=== PATIENT | male | born 1950 | race Caucasian/White ===

== ENCOUNTER 2016-08-06 13:17 | Inpatient (IN) | payer MEDICARE ==
[~2016-08-06] VITALS: Ht 180.3 cm; Wt 84.2 kg
[2016-08-06] MEDS ORDERED: HYDROCODON-ACE1 EAC7 PO (13:41)
[2016-08-06] MEDS ORDERED: FUROSEMIDE40 MG PO (13:42)
[2016-08-06] MEDS ORDERED: FOSRENOL500 MG PO (13:42)
[2016-08-06] MEDS ORDERED: PRINIVIL20 MG PO (13:45)
[2016-08-06] MEDS ORDERED: SENSIPAR30 MG PO (13:45)
[2016-08-06 13:46] VITALS: BP 68/34; BMI 26.8
--- NOTE | 2016-08-06 14:20 | NUR ---
PT TO UNIT VIA WHEELCHAIR ACCOMPANIED BY HOSPTIAL STAFF. PT IS ALERT AND ORIENTED. SURGICAL MASK ON PT. GLASSES ON PT. NO IV ACCESS CURRENTLY (PT IS DIRECT ADMIT). PT IS IN AIRBORNE ISOLATION FOR TB. INSTRUCTED PT AND THAT ANYONE THAT COMES IN ROOM HAS TO WEAR N95 RESP MASK AND TO MAKE SURE THE DOORS ARE KEPT CLOSED. PT AND PTS AGREED. QUICKSTART DONE, ADMISSION ASSESSMENT DONE, AND ADMISSION HISTORY DONE. WILL CONTINUE TO MONITOR AND AWAIT NEW ORDERS. WILL TRY TO INSERT IV ONCE XRAY GETS DONE IN ROOM.
--- NOTE | 2016-08-06 14:37 | NUR ---
SHANNAN PERALTA NP TO CLARIFY WITH HIM ABOUT WRITTEN ORDERS IN THE CHART REGARDING PERITONEAL DIALYSIS. AWAITING CALLBACK.
[2016-08-06 14:57] LABS: INR 1.06 (0.85-1.17); PROTIME 13.6 SECONDS (11.6-15.0)
--- NOTE | 2016-08-06 15:00 | NUR ---
FABIAN TOMLINSON APN CALLED BACK TO CLARIFY PD ORDERS. RAIS PERALTA STATES DWELL TIME IS 6 HOURS WITH 2,000CC INSTILATION TIME. WILL AWAIT DR. GARZA TO CLARIFY WRITTEN ORDER IN CHART.
[2016-08-06 15:09] LABS: ALBUMIN 2.3 g/dL (3.4-5.0); BILIRUBIN - DIRECT 0.16 mg/dL (0.00-0.30); BILIRUBIN - INDIRECT 0.44 mg/dL (0.00-1.00); BILIRUBIN - TOTAL 0.6 mg/dL (0.2-1.3); CALCIUM 9.1 mg/dL (8.5-10.1); MAGNESIUM - SERUM 1.7 mg/dL (1.8-2.4); PHOSPHOROUS 7.8 mg/dL (2.5-4.9); PROTEIN - SERUM 6.2 g/dL (6.4-8.2)
[2016-08-06 15:14] LABS: HEMATOCRIT 32.3 % (42.0-54.0); HEMOGLOBIN 11.2 g/dL (13.5-17.5); MCH 30.8 pg (26.0-34.0); MCHC 34.7 g/dL (31.0-37.0); MCV 88.7 fL (80.0-100.0); MEAN PLATELET VOLUME 11.5 fL (7.4-10.4); PLATELET COUNT 292 10x3/uL (130-400); RBC 3.64 10x6/uL (4.20-6.10); RDW 14.5 % (11.5-14.5)
[2016-08-06 15:36] VITALS: BP 96/60
[2016-08-06 15:42] LABS: LYMPHOCYTES 8 % (15-50); NEUTROPHILS 92 % (40-80); PLATELET ESTIMATE NORMAL
--- NOTE | 2016-08-06 17:22 | NUR ---
LAVON GONZALEZ RN INSERTED IV INTO PTS RIGHT AC WITH 22G IV CATHETER X 1 STICK. TOLERATED WELL. IV ANTIBIOTICS ARE INFUSING NOW. WILL CONTINUE TO MONITOR.
--- NOTE | 2016-08-06 18:12 | NUR ---
IN AIRBORNE ISOLATION FOR POSSIBLE TB. PT IS CURRENTLY LAYING IN BED ON BACK WITH EYES OPEN WATCHING TV. IS AT BEDSIDE. FAMILY MEMBERS INSTRUCTED TO KEEP DOORS SHUT AND WEAR PPE WHEN ENTERING ROOM. NO NEED AT CURRENT TIME. WILL CONTINUE TO MONITOR.
[2016-08-06 18:31] LABS: EOS BF 8 %; LYMPH - BF 13 %; MACROPHAGES BF 3 %; MESOTHELIALS BF 2 %; NEUT - BF 74 %
--- NOTE | 2016-08-06 18:35 | NUR ---
PT IS RESERVE LEFT ARM FOR AVF. 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 SIGNS PLACED ABOVE PTS BED AND ON PTS DOOR.
[2016-08-06 21:04] VITALS: BP 118/46
--- NOTE | 2016-08-06 21:04 | NUR ---
PT AWAKE, ALERT, ORIENTED, DENIES ANY NEEDS. CONTINUE TO MONITOR CLOSELY.
[2016-08-07 01:48] VITALS: BP 132/62
--- NOTE | 2016-08-07 05:04 | NUR ---
PT AWAKE, ALERT, ORIENTED, SITTING ON SIDE OF BED. PD WITHOUT ANY DIFFICULTY. PT DENIES ANY ACUTE NEEDS. CONTINUE TO MONITOR CLOSELY.
[2016-08-07 05:05] VITALS: BP 117/64
[2016-08-07 05:27] LABS: BASOPHILS 0.1 % (0.0-2.0); EOSINOPHILS 0.7 % (0-7); HEMATOCRIT 31.7 % (42.0-54.0); HEMOGLOBIN 10.6 g/dL (13.5-17.5); IMMATURE GRANULOCYTES 1.2 % (0-5); LYMPHOCYTES 7.3 % (15-50); MCHC 33.4 g/dL (31.0-37.0); MCV 89.8 fL (80.0-100.0); MONOCYTES 3.2 % (2-11); NEUTROPHILS 87.5 % (40-80); PLATELET COUNT 281 10x3/uL (130-400); RBC 3.53 10x6/uL (4.20-6.10); RDW 14.4 % (11.5-14.5); WBC 20.9 10x3/uL (4.8-10.8)
[2016-08-07 05:31] LABS: CARBON DIOXIDE 29.3 mmol/L (21.0-32.0); CREATININE - SERUM 12.9 mg/dL (0.6-1.3)
[2016-08-07 05:32] LABS: POTASSIUM - SERUM 3.3 mmol/L (3.5-5.1)
--- NOTE | 2016-08-07 07:37 | NUR ---
PT SITTING UP IN BED DENIES AT THIS TIME WILL CONT TO MONITOR.
[2016-08-07 08:31] VITALS: BP 102/63
--- NOTE | 2016-08-07 10:01 | NUR ---
Patient Name: ROSHAN VELAZQUEZ Admission Status: Elective Accout number: [id number] Admission Date: 08-06-2016 : 1950 Admission Diagnosis: Attending: AKOSUA Current LOS: 1 Anticipated DC Date: Planned Disposition: Home Primary Insurance: [facility] PF Discharge Planning Comments: * Is the patient Alert and Oriented? Yes 0 * How many steps to enter\exit or inside your home? 3 OUT/1 IN 0 * PCP ABDULLAHI VITALE DR. - NEPHROLOGY 0 * [facility] * Preadmission Environment Home with Family 0 * ADLs Independent 0 * Equipment Other 0 * Other Equipment HOME DIALYSIS (PD) EQUIPMENT AND SUPPLIES 0 * List name and contact numbers for known caregivers / representatives who currently or will assist patient after discharge: SHIRA VELAZQUEZ, SPOUSE, 0 * Community resources currently utilized Other 0 * Please name any agencies selected above. [facility] [employer], MAIL ORDER - HOME PD SUPPLIES 0 * Additional services required to return to the preadmission environment? No 0 * Can the patient safely return to the preadmission environment? Yes 0 * Has this patient been hospitalized within the prior 30 days at any hospital? No 0 CM MET WITH PT IN ROOM TO DISCUSS DISCHARGE PLANNING AND NEEDS. PT REPORTS LIVING AT HOME INDEPENDENTLY WITH SPOUSE. PT HAS HOME DIALYSIS EQUIPMENT FOR PERITONEAL DIALYSIS, SUPPLIES PROVIDED BY [employer] VIA MAIL ORDER. PT HAS NO OTHER MEDICAL EQUIPMENT, NO MEDICAL EQUIPMENT PROVIDER PREFERENCE AND NO OUTSIDE SERVICES ASSISTING IN THE HOME. CM DISCUSSED AVAILABILITY OF HOME HEALTH, REHAB SERVICES AND MEDICAL EQUIPMENT. PT DENIES DISCHARGE NEEDS, REPORTS HIS SPOUSE WILL PICK HIM UP FOR DISCHARGE HOME. IMPORTANT MESSAGE FROM MEDICARE PROVIDED AND EXPLAINED. PT PLANS TO DISCHARGE HOME WITH SPOUSE, DENIES DISCHARGE NEEDS. CM TO FOLLOW AND ASSIST IF NEEDED. Identification And Records Commander: Doyle Huitron
--- NOTE | 2016-08-07 10:09 | NUR ---
PATIENT PATHWAYS - [facility]. PD patient. BMM
[2016-08-07 10:58] VITALS: Ht 180.3 cm; Wt 84.2 kg
[2016-08-07 12:00] VITALS: BP 135/49
--- NOTE | 2016-08-07 12:17 | NUR ---
PT SITTING UP TO CHAIR AND VISITOR IN ROOM. PT DENIES NEEDS AT THIS TIME. WILL CPOC
[2016-08-07 16:22] VITALS: BP 143/82
[2016-08-07 18:14] LABS: BASOPHILS 0.1 % (0.0-2.0); EOSINOPHILS 0.8 % (0-7); HEMATOCRIT 31.4 % (42.0-54.0); HEMOGLOBIN 10.6 g/dL (13.5-17.5); LYMPHOCYTES 5.3 % (15-50); MCH 30.3 pg (26.0-34.0); MCHC 33.8 g/dL (31.0-37.0); MCV 89.7 fL (80.0-100.0); MEAN PLATELET VOLUME 10.9 fL (7.4-10.4); MONOCYTES 2.4 % (2-11); NEUTROPHILS 90.4 % (40-80); PLATELET COUNT 276 10x3/uL (130-400); RDW 14.5 % (11.5-14.5); WBC 20.3 10x3/uL (4.8-10.8)
--- NOTE | 2016-08-07 18:25 | NUR ---
PT RECIVED PD AND TOLERATED WELL NO COMPLICATIONS WITH DRAINAGE OF FILLING OF PD FLUID, HEPRIN 1000 UNITS ADDED TO PD BAG. PT AMBULATORY WITH NO ASSISTANCE NEEDED IN ROOM AT BED SIDE IVP SALINE LOCKED AND FLUSHED WITH 10C NORMAL SALINE NO DISTRESS OBSERVED WILL MONITOR. PD FLOWSHEET ON CHART
--- NOTE | 2016-08-07 18:31 | NUR ---
CONSENTS FOR BRONCOSCOPY SIGNED AND TO CHART
[2016-08-07 18:52] LABS: APTT 27.4 SECONDS (22.8-39.4); INR 1.09 (0.85-1.17)
[2016-08-07 22:23] VITALS: BP 147/103
[2016-08-08 03:36] VITALS: BP 96/65
--- NOTE | 2016-08-08 05:52 | NUR ---
23:30 - PT SITTING ON SIDE OF BED, STATES HE IS HAVING TREMENDOUS ABDOMINAL PAIN AND NEEDS TO BE DRAINED VIA PD GERSON. PT DEMONSTRATES FRUSTRATION AND STATED HE THAT HE DRAINS AND CYCLES AT HOME Q 2HRS TO 4HRS, AND PRN IN BETWEEN. PT DEMONSTRATES GREAT KNOWLEDGE ABOUT HIS PD, AND IS REQUESTING THE PD SCHEDULE TO BE CHANGED TO A MINIMUM Q 4 HOURS. WILL CONTINUE TO MONITOR CLOSELY.
[2016-08-08 06:22] VITALS: BP 108/45
[2016-08-08 06:54] LABS: BASOPHILS 0.1 % (0.0-2.0); EOSINOPHILS 0.9 % (0-7); HEMATOCRIT 27.2 % (42.0-54.0); HEMOGLOBIN 9.3 g/dL (13.5-17.5); IMMATURE GRANULOCYTES 0.9 % (0-5); LYMPHOCYTES 5.4 % (15-50); MCH 30.6 pg (26.0-34.0); MCHC 34.2 g/dL (31.0-37.0); MCV 89.5 fL (80.0-100.0); MEAN PLATELET VOLUME 10.9 fL (7.4-10.4); MONOCYTES 2.7 % (2-11); PLATELET COUNT 258 10x3/uL (130-400); RBC 3.04 10x6/uL (4.20-6.10); RDW 14.6 % (11.5-14.5); WBC 18.5 10x3/uL (4.8-10.8)
[2016-08-08 07:08] LABS: ANION GAP 13.9 mmol/L (8-16); CALCIUM 9.4 mg/dL (8.5-10.1); CARBON DIOXIDE 29.1 mmol/L (21.0-32.0); CREATININE - SERUM 13.9 mg/dL (0.6-1.3)
[2016-08-08 09:05] VITALS: BP 105/46
--- NOTE | 2016-08-08 09:40 | CN ---
PATIENT NAME:ROSHAN VELAZQUEZ MEDICAL RECORD: [id number] : [birth year] LOCATION:. D.2140 ADMIT DATE: 08/06/16 ACCOUNT: [id number] CONSULTING PHYSICIAN: BENSON CHAUDHARY MD REFERRING PHYSICIAN: ANDERSON GARZA MD DATE OF CONSULTATION: 08/06/2016 CONSULT REQUESTING PHYSICIAN: Anderson Garza MD REASON FOR CONSULTATION: Possible TB. HISTORY OF PRESENT ILLNESS: Mr. Velazquez is a 66-year-old gentleman who has a history of positive PPD in 1987. He was treated by the [facility] at that time and also his has a positive PPD too and she was treated at the same time. Just few weeks ago, the patient has a pneumonia shot and then the patient was sick and he was coughing. Chest radiograph was done, which showed some scarring and infiltrate in the upper lobe. The primary care physician was taking the patient his TB, 2 specimens of sputum was taken, but that was inconclusive. The patient has no fever and chill. There are no night sweats. There is no cough, no sputum production. There is no hemoptysis. The patient states he does not have any weight loss recently, he has leukocytosis and peritonitis for which he is on any antibiotic. He has end-stage renal disease and he is on peritoneal dialysis. REVIEW OF SYSTEMS: CONSTITUTIONAL: No fever or chills, no night sweats, no weight loss. HEENT: There is no sinus congestion. RESPIRATORY: As in history of present illness. CARDIOVASCULAR: Negative. GASTROINTESTINAL: Negative. GENITOURINARY: Negative. Other review of systems is negative. PAST MEDICAL HISTORY: 1. History of positive PPD in 1987 and at that time, he was treated with chemotherapy. 2. Possible exposure to TB with chest x-ray apical changes. 3. End-stage renal disease, on peritoneal dialysis. 4. Hypertension. PAST SURGICAL HISTORY: 1. He has a cataract surgery. 2. Knee surgery. 3. He has a fistula in his arm. ALLERGIES: No known drug allergies. MEDICATIONS: He is on Fortaz, furosemide and lisinopril. His all other medications are reviewed. PERSONAL AND SOCIAL HISTORY: The patient is an ex-smoker. He is a nondrinker. FAMILY HISTORY: Significant for cardiovascular disease and cancer. PHYSICAL EXAMINATION: CONSULT REPORT [id number] ROSHAN VELAZQUEZ GENERAL: Now, the patient is lying comfortably. He is not in acute distress. VITAL SIGNS: The blood pressure is 96/60, pulse is 96, respirations 18, temperature 97.5 and SPO2 is 97% on room air. HEENT: Conjunctivae are pink. Sclerae nonicteric. NECK: Supple, no JVD. CHEST: Excursion is minimal on both sides. There is no wheeze and no rales. HEART: Rhythm regular, normal sound. No murmur. ABDOMEN: Soft. Bowel sounds present. The abdomen is tender on deep palpation. Bowel sounds are present. RECTAL: Deferred. EXTREMITIES: No cyanosis, no clubbing and no pedal edema. SKIN: Warm, normal turgor. CENTRAL NERVOUS SYSTEM: The patient is awake and alert. There are no obvious cranial nerve abnormalities. The gait was not tested. CHEST RADIOGRAPH: There is bilateral apical scarring. Questionable infiltrate. OTHER LABORATORY DATA: CBC: The WBC is 21,000, hemoglobin 11.2, hematocrit 32.3, the platelet count is 292. Chemistry: Sodium 140, potassium is 5, BUN is 69 and creatinine 12. IMPRESSION: 1. History of positive PPD in the past. 2. Possible TB exposure in the past with bilateral apical scarring. 3. History is end-stage renal disease. 4. Peritonitis. 5. Leukocytosis secondary to peritonitis. 6. Hypertension. RECOMMENDATION: As the patient has biapical scarring, but I would doubt acute pulmonary tuberculosis, the patient does have a history of positive PPD and he was treated by the Health Department in 1987. I will discuss with Dr. Rhoades in the morning. If suspicions for pulmonary tuberculosis is high, we will do the bronchoscopy. Dr. Garza, once again thank you for involving me in the care of Mr. Velazquez. TRANSINT:[id number] Voice Confirmation ID: [id number] DOCUMENT ID: [id number] BENSON CHAUDHARY MD at 0940 CC: ANDERSON GARZA MD [id number] DICTATION DATE: 08/06/161816 DEATH CLAIM CLERK: 08/07/16 0111 ADM IN [facility] [address] [place] [address]
[2016-08-08 12:42] VITALS: BP 125/71
--- NOTE | 2016-08-08 13:51 | NUR ---
PT ASSESSMENT COMPLETED AND NO S/S OF DISTRESS RESPERATIONS EVEN AND UNLABORED ON ROOM AIR. BRONCH COMPLETED AND PT TOLERATED WELL PT BECAME HYPOTENSIVE AFTER PROCEDURE AND FLUIDS GIVEN BY [facility] NURSE TO INCREASE BP PD DIALYSIS COMPLETED AND 2000 PUT OUT AFTER DWELL TIME COMPLETED PT TOLERATED WELL BED LOW AND LOCKED CALL LIGHT IN REACH SRX2 WILL MONITOR
--- NOTE | 2016-08-08 14:45 | NUR ---
PT BROUGHT SOME FOOD IN FOR PT TO EAT DUE TO PT UNABLE TO EAT LUNC AND PT C/O BEING HUNGRY
[2016-08-08 16:28] VITALS: BP 85/52
[2016-08-08 18:56] LABS: EOS BF 11 %; LYMPH - BF 5 %; MACROPHAGES BF 8 %; NEUT - BF 76 %
--- NOTE | 2016-08-08 19:30 | NUR ---
RECEIVED PT IN BED WATCHING TV RESP UNLABORED DENIES ANY NEEDS OR DISCOMFORT AT THIS TIME PT ON AIRBORNE ISOLATION WILL CONTINUE TO MONITOR
[2016-08-08 19:53] VITALS: BP 101/44
--- NOTE | 2016-08-08 20:00 | NUR ---
PD EXCHANGE STARTED USING STERILE TECHNIQUE PT TOLERATING WELL
--- NOTE | 2016-08-08 20:40 | NUR ---
PD EXCHANGE COMPLETE 700MLS OUT AND 1500 MLS INSTILLED PT TOLERATED WELL
[2016-08-09 00:24] VITALS: BP 105/55
[2016-08-09 04:23] VITALS: BP 116/42
[2016-08-09 06:55] LABS: HEMATOCRIT 28.4 % (42.0-54.0); HEMOGLOBIN 9.7 g/dL (13.5-17.5); MCH 30.7 pg (26.0-34.0); MCHC 34.2 g/dL (31.0-37.0); MCV 89.9 fL (80.0-100.0); MEAN PLATELET VOLUME 10.8 fL (7.4-10.4); PLATELET COUNT 280 10x3/uL (130-400); RBC 3.16 10x6/uL (4.20-6.10); RDW 14.7 % (11.5-14.5); WBC 22.1 10x3/uL (4.8-10.8)
[2016-08-09 07:05] LABS: CALCIUM 9.5 mg/dL (8.5-10.1); CREATININE - SERUM 14.3 mg/dL (0.6-1.3)
--- NOTE | 2016-08-09 07:28 | NUR ---
PT SITTING UP IN CHAIR DENIES NEEDS
[2016-08-09 07:37] LABS: EOSINOPHILS 2 % (0-7); LYMPHOCYTES 2 % (15-50); NEUTROPHILS 96 % (40-80); PLATELET ESTIMATE NORMAL
[2016-08-09 08:49] VITALS: BP 120/59
[2016-08-09 12:17] LABS: FUNGUS STAIN Final report (())
[2016-08-09 12:43] VITALS: BP 110/61
[2016-08-09 17:07] VITALS: BP 106/52
[2016-08-09 21:07] LABS: AFB SPECIMEN PROCESSING Concentration (())
[2016-08-09 21:08] VITALS: BP 143/56
--- NOTE | 2016-08-09 23:17 | NUR ---
INITIAL ROUNDS COMPLETED AT 1915 HRS. PT DENIED ANY DISCOMFORT. ASSESSMETN COMPLETED AT 2004 HRS. VSS. IV TO RAC SL. L ARM AVF WITH GOOD BRUIT AND THRILL. DRESSING TO ABD PD CATHETER CLEAN, DRY AND INTACT. PD EXCAHNGE IN PROGRESS AT THAT TIME. PM MEDS GIVEN. PT CURRENTLY SITTING UP IN A CHAIR, DENIES ANY DISCOMFORT. SR UP X2, CALL LIGHT WITHIN REACH.
[2016-08-10 00:07] VITALS: BP 109/52
--- NOTE | 2016-08-10 00:21 | NUR ---
PD EXCHANGE IN PROGRESS. PT DENIES ANY DISCOMFORT. WILL CONTINUE TO MONITOR.
--- NOTE | 2016-08-10 03:04 | NUR ---
PT RESTING WITH EYES CLOSED. RESP EVEN AND REGULAR. SR UP X2, CALL LIGHT WITHIN REACH.
[2016-08-10 04:15] VITALS: BP 100/52
--- NOTE | 2016-08-10 04:21 | NUR ---
PT AWAKW; DENIES ANY DISCOMFORT. PD EXCHANGE IN PROGRESS. WILL CONTINUE TO MONITOR.
--- NOTE | 2016-08-10 06:07 | NUR ---
VSS THROUGHOUT NIGHT. PT DENIED ANY DISCOMFORT. NEEDS MET; WILL CONTINUE TO MONITOR.
[2016-08-10 06:46] LABS: BASOPHILS 0.1 % (0.0-2.0); EOSINOPHILS 1.4 % (0-7); HEMATOCRIT 27.2 % (42.0-54.0); HEMOGLOBIN 9.1 g/dL (13.5-17.5); IMMATURE GRANULOCYTES 0.3 % (0-5); LYMPHOCYTES 5.6 % (15-50); MCH 30.2 pg (26.0-34.0); MCHC 33.5 g/dL (31.0-37.0); MCV 90.4 fL (80.0-100.0); MEAN PLATELET VOLUME 10.8 fL (7.4-10.4); NEUTROPHILS 88.6 % (40-80); PLATELET COUNT 281 10x3/uL (130-400); RBC 3.01 10x6/uL (4.20-6.10)
[2016-08-10 06:50] LABS: WBC 14.6 10x3/uL (4.8-10.8)
--- NOTE | 2016-08-10 07:00 | NUR ---
RECEIVED REPORT. ASSUMED CARE OF PATIENT. CALL LIGHT WITHIN REACH. AMBULATORY AROUND ROOM. AIRBORNE ISOLATION FOR TB. DENIES NEEDS AT THIS TIME. NO DISTRESS.
[2016-08-10 07:01] LABS: CALCIUM 9.2 mg/dL (8.5-10.1); CARBON DIOXIDE 29.8 mmol/L (21.0-32.0); CREATININE - SERUM 14.1 mg/dL (0.6-1.3)
[2016-08-10 07:04] LABS: POTASSIUM - SERUM 2.8 mmol/L (3.5-5.1)
[2016-08-10 08:06] VITALS: BP 100/58
--- NOTE | 2016-08-10 08:43 | NUR ---
COMPLETED PD AT THIS TIME WITH 1500CC DRAINED. NO DISTRESS.
[2016-08-10 11:55] VITALS: BP 138/87
--- NOTE | 2016-08-10 12:45 | NUR ---
PD COMPLETED AT THIS TIME. PATIENT SITTING UP TO CHAIR AT BEDSIDE. AMBULATORY THROUGHOUT ROOM. CONTINUES IN AIRBONE ISLOATION FOR TB PRECAUTIONS. PATIENT DENIES NEEDS AT THIS TIME. NO DISTRESS. CALL LIGHT WITHIN REACH.
[2016-08-10 15:03] VITALS: BP 115/61
--- NOTE | 2016-08-10 17:11 | NUR ---
PD COMPLETE AT THIS TIME. SITTING IN CHAIR AT BEDSIDE. NO DISTRESS. CALL LIGHT WITHIN REACH.
[2016-08-10 21:26] VITALS: BP 115/66
--- NOTE | 2016-08-10 23:10 | NUR ---
NURSE ROUNDS 20:45 - PT SITTING IN BEDSIDE CHAIR, AWAKE, ALERT, ORIENTED, DENIES ANY ACUTE NEEDS. PT PREFERS TO DO HIS PD AT THIS TIME. CONTINUE TO MONITOR CLOSELY.
[2016-08-11 00:30] VITALS: BP 114/63
--- NOTE | 2016-08-11 00:55 | NUR ---
CORDUROY CUTTING SUPERVISOR AT BEDSIDE FOR VS. NEEDS ADDRESSED, CALL LIGHT IN REACH. WILL CONT TO MONITOR.
[2016-08-11 04:30] VITALS: BP 101/50
--- NOTE | 2016-08-11 05:08 | NUR ---
PT SITTING IN CHAIR, EYES CLOSED, RESPIRATIONS EVEN AND UNLABORED, EASILY ROUSABLE TO VERBAL STIMULI. PT ASSISTS WITH HIS OWN PD, DENIES ANY ACUTE NEEDS, DENIES PAIN. CONTINUE TO MONITOR CLOSELY.
[2016-08-11 06:22] LABS: BASOPHILS 0.4 % (0.0-2.0); HEMATOCRIT 29.2 % (42.0-54.0); HEMOGLOBIN 9.6 g/dL (13.5-17.5); IMMATURE GRANULOCYTES 0.5 % (0-5); LYMPHOCYTES 11.2 % (15-50); MCH 29.9 pg (26.0-34.0); MCHC 32.9 g/dL (31.0-37.0); MEAN PLATELET VOLUME 10.7 fL (7.4-10.4); MONOCYTES 5.2 % (2-11); NEUTROPHILS 80.7 % (40-80); PLATELET COUNT 282 10x3/uL (130-400); RBC 3.21 10x6/uL (4.20-6.10)
[2016-08-11 06:26] LABS: WBC 10.5 10x3/uL (4.8-10.8)
[2016-08-11 06:38] LABS: ANION GAP 14.7 mmol/L (8-16); CALCIUM 9.3 mg/dL (8.5-10.1); CARBON DIOXIDE 30.3 mmol/L (21.0-32.0); CREATININE - SERUM 14.1 mg/dL (0.6-1.3)
--- NOTE | 2016-08-11 07:00 | NUR ---
RECEIVED REPORT. ASSUMED CARE OF PATIENT. CALL LIGHT WITHIN REACH. PATIENT REMAINS IN AIRBORNE ISOLATION FOR TB PRECAUTIONS. RESTING WITH EYES CLOSED, EASILY AROUSED. STATES HE FEELS GOOD THIS AM. DENIES NEEDS AT THIS TIME. NO DISTRESS.
[2016-08-11 08:13] VITALS: BP 104/60
--- NOTE | 2016-08-11 11:27 | NUR ---
SITTING TO SIDE OF BED. AT BEDSIDE. NO DISTRESS. DENIES NEEDS. CALL LIGHT WITH IN REACH. WARM BLANKET PROVIDED AT THIS TIME.
[2016-08-11 12:43] VITALS: BP 114/67
--- NOTE | 2016-08-11 12:50 | NUR ---
PD COMPLETE AT THIS TIME. PATIENT RESTING IN BED WITH EYES OPEN HE BECAME CHILLED AFTER RECEIVING PD. PATIENTS AT BEDSIDE. CALL LIGHT WITH IN REACH. NO DISTRESS.
[2016-08-11 15:13] LABS: EOS BF 2 %; LYMPH - BF 23 %; MESOTHELIALS BF 2 %; NEUT - BF 73 %
[2016-08-11 16:00] VITALS: BP 121/53
--- NOTE | 2016-08-11 17:19 | NUR ---
PATIENT COMPLETED PD AT THIS TIME. RESTING IN BED WITH EYES OPEN. REMAINS AT BEDSIDE. CALL LIGHT WITHIN REACH. WARM BLANKET PROVIDED. DENIES FURTHER NEEDS. NO DISTRESS.
--- NOTE | 2016-08-11 20:54 | NUR ---
PT AWAKE, ALERT, ORIENTED, SITTING IN CHAIR. PT STATES HE IS FEELING BETTER. PT DOES HIS OWN PD WITH MINIMAL ASSISTANCE. CONTINUE TO MONITOR CLOSELY.
[2016-08-11 21:24] VITALS: BP 110/57
[2016-08-12 00:30] VITALS: BP 121/54
--- NOTE | 2016-08-12 01:28 | NUR ---
PT LYING ON LEFT SIDE, EYES CLOSED, RESPIRATIONS EVEN AND UNLABORED. CONTINUE TO MONITOR CLOSELY.
[2016-08-12 04:30] VITALS: BP 100/50
[2016-08-12 05:06] LABS: BASOPHILS 0.5 % (0.0-2.0); EOSINOPHILS 1.7 % (0-7); HEMATOCRIT 30.9 % (42.0-54.0); HEMOGLOBIN 10.2 g/dL (13.5-17.5); IMMATURE GRANULOCYTES 0.2 % (0-5); LYMPHOCYTES 10.1 % (15-50); MCH 29.8 pg (26.0-34.0); MCV 90.4 fL (80.0-100.0); MEAN PLATELET VOLUME 10.8 fL (7.4-10.4); MONOCYTES 7.5 % (2-11); PLATELET COUNT 340 10x3/uL (130-400); RBC 3.42 10x6/uL (4.20-6.10); RDW 15.1 % (11.5-14.5); WBC 14.3 10x3/uL (4.8-10.8)
[2016-08-12 05:16] LABS: ANION GAP 16.9 mmol/L (8-16); CALCIUM 9.6 mg/dL (8.5-10.1); CARBON DIOXIDE 28.2 mmol/L (21.0-32.0); CREATININE - SERUM 13.6 mg/dL (0.6-1.3); POTASSIUM - SERUM 3.1 mmol/L (3.5-5.1)
--- NOTE | 2016-08-12 07:55 | NUR ---
AM ROUNDING- PT LAYING IN BED ON BACK. PT IS IN AIRBORNE ISOLATION FOR POSSIBLE TB. ON ROOM AIR. NO MONITOR. LEFT ARM RESERVE FOR AVF THAT PER REPORT PT DOES NOT USE CURRENTLY. PT DOES PD DIALYSIS Q4H PER REPORT FROM MOLDING FITTER NURSE JERAMY, PT DOES PD DIALYSIS ON HIS OWN. SADIEY OUT OF PD FLUID 2.5%, CALED CENTRAL SUPPLY AND THEY STATED THEY WOULD BRING SOME UP. IV SEEN TO RIGHT AC THIS IS CURRENTLY SALINE LOCKED. PT IS UP AD STEPHANIE. ALERT AND ORIENTED. NO NEED AT CURRENT TIME. AWAITING PD FLUID SO PT CAN DIALYZE. WILL CONTINUE TO MONITOR AND AWAIT PD FLUID.
[2016-08-12 08:32] VITALS: BP 105/65
[2016-08-12 12:30] VITALS: BP 104/40
--- NOTE | 2016-08-12 12:40 | NUR ---
DR. SPENCER ON UNIT, INFORMED ME THAT PT CAN COME OUT OF AIRBORNE ISOLATION. WILL CALL JENNIFER WITH INFECTION CONTROL AND LET HER KNOW.
--- NOTE | 2016-08-12 13:36 | NUR ---
JENNIFER WITH INFECTION CONTROL CALLED AND NOTIFIED ABOUT DR. SPENCER STATING PT CAN COME OFF ISOLATION. JENNIFER STATED OK.
[2016-08-12 16:44] VITALS: BP 92/49
--- NOTE | 2016-08-12 17:49 | NUR ---
PT LAYING IN BED ON BACK WITH EYES OPEN WATCHING TV. IS AT BEDSIDE. DENIES ANY NEED AT CURRENT TIME. WILL CONTINUE TO MONITOR.
[2016-08-12 20:36] VITALS: BP 81/39
[2016-08-13 01:19] VITALS: BP 144/123
[2016-08-13 05:06] VITALS: BP 77/38
[2016-08-13 05:52] LABS: BASOPHILS 0.6 % (0.0-2.0); EOSINOPHILS 1.6 % (0-7); HEMATOCRIT 31.6 % (42.0-54.0); HEMOGLOBIN 10.3 g/dL (13.5-17.5); IMMATURE GRANULOCYTES 0.3 % (0-5); LYMPHOCYTES 14.4 % (15-50); MCH 29.8 pg (26.0-34.0); MCHC 32.6 g/dL (31.0-37.0); MCV 91.3 fL (80.0-100.0); MEAN PLATELET VOLUME 10.6 fL (7.4-10.4); MONOCYTES 6.8 % (2-11); NEUTROPHILS 76.3 % (40-80); PLATELET COUNT 348 10x3/uL (130-400); RBC 3.46 10x6/uL (4.20-6.10); RDW 15.3 % (11.5-14.5); WBC 12.5 10x3/uL (4.8-10.8)
[2016-08-13 06:39] LABS: ANION GAP 17.6 mmol/L (8-16); CALCIUM 9.5 mg/dL (8.5-10.1); CARBON DIOXIDE 27.7 mmol/L (21.0-32.0); CREATININE - SERUM 13.9 mg/dL (0.6-1.3); MAGNESIUM - SERUM 1.5 mg/dL (1.8-2.4); POTASSIUM - SERUM 3.3 mmol/L (3.5-5.1)
--- NOTE | 2016-08-13 08:10 | NUR ---
ASSESSMENT DONE. PT A/O. SITTING UP IN CHAIR AT BEDSIDE. DENIES NEEDS. STATES HE WANTS TO GO HOME. NO DISTRESS NOTED. CALL LIGHT PLACED WITH IN REACH. WILL CONT. TO MONITOR.
[2016-08-13 08:12] VITALS: BP 86/50
--- NOTE | 2016-08-13 10:54 | NUR ---
AMBULATING IN HALLWAY WITH . PATIENT VERY ANXIOUS TO GO HOME. WILL CONTINUE TO MONITOR.
--- NOTE | 2016-08-13 11:28 | NUR ---
PT REFUSES THE 1200 ROUND OF PD. STATES HE IS DOING IT TO OFTEN AND THAT IS WHY HIS B/P IS SO LOW. WILL RE-ASSESS AT 1600.
[2016-08-13 12:14] VITALS: BP 81/48
--- NOTE | 2016-08-13 12:55 | NUR ---
PT WANTS TO GO HOME NOW. PAGED SHIRA DEALER SALES MANAGER WITH RENAL. PT STATES HE IS "THINKING ABOUT JUST WALKING OUT." HE HAS AGREED TO WAIT A LITTLE BIT LONGER TO SEE IF SHIRA CALL BACK.
--- NOTE | 2016-08-13 14:02 | NUR ---
Nutrition follow-up: Diet: Renal PO intake ~75% average of meals labs reviewed +BM Wt: 186# stable PO intake remains good at this time RDN following.
--- NOTE | 2016-08-13 14:28 | NUR ---
NURSE FLUSHED IV BEFORE HANGING MAG. PT'S IV INFILTRATED. PT'S IV REMOVED. PT HAS D/C ORDERS AND REFUSES TO HAVE NEW IV PUT IN. PAGED SHIRA ISABEL WITH RENAL TO SEE IF MAG COULD BE CHANGED TO PO.
--- NOTE | 2016-08-13 14:59 | NUR ---
HAVE NOT HEARD BACK FROM SHIRA. PAGED DR. WAHL TO INFORM HIM OF PT'S IV STATUS AND SEE IF MAG CAN BE CHANGED TO PO.
--- NOTE | 2016-08-13 15:05 | NUR ---
ORDER REC'D FOR MAG-OX 800MG PO X1 PER DR. WAHL.
--- NOTE | 2016-08-13 15:18 | NUR ---
Patient Name: ROSHAN VELAZQUEZ Encounter No: [id number] : 1950 Primary Insurance: [facility] [employer] [facility] PFF[facility] Anticipated DC Date: 08-13-2016 Planned Disposition: Home DCP follow-up note: CM MET WITH PT IN ROOM TO DISCUSS DISCHARGE NEEDS AND PLANNING. CM DISCUSSED AVAILABILITY OF HOME HEALTH, REHAB SERVICES AND MEDICAL EQUIPMENT. PT DENIES DISCHARGE NEEDS. SPOUSE TO TRANSPORT HOME AT DISCHARGE. IMPORTANT MESSAGE FROM MEDICARE PROVIDED AND EXPLAINED. Doyle Huitron, CASE MANAGEMENT
--- NOTE | 2016-08-13 15:30 | NUR ---
PT GIVEN D/C INSTRUCTIONS. TOLD TO STOP LASIX. PT VERBALIZED UNDERSTANDING. PT DECLINED WHEELCHAIR OUT. WANTS TO WALK. PT D/C HOME VIA PRIVATE VEHICLE. HE STATES HE HAS F/U WITH PD NURSE TOMORROW.
--- NOTE | 2016-08-14 15:51 | NUR ---
PATIENT PATHWAYS: [facility]. Med recs forwarded. Clinic updated of patient/family questions regarding insurance. M Dialysis Coordinator.
[2016-08-20 11:18] LABS: FUNGUS CULTURE RESULT 1 Candida glabrata (())
[2016-08-21 16:15] LABS: FUNGUS MYCOLOGY CULTURE Final report (())
--- NOTE | 2016-09-06 13:49 | PRO ---
PATIENT:ROSHAN VELAZQUEZ MEDICAL RECORD: [id number] : 46 LOCATION:D. D.2140 ADMISSION DATE: 08/06/16 PROCEDURE PERFORMED BY: BENSON CHAUDHARY MD DATE OF PROCEDURE: 08/08/2016 PROCEDURE: Fiberoptic bronchoscopy. INDICATION: Mr. Velazquez is a 66-year-old gentleman who has a history of positive PPD. He has a new infiltrate in bilateral upper lobe. Fiberoptic bronchoscopy was carried out to inspect the airway and obtain specimens for culture and sensitivity. MONITORING: EKG, blood pressure, SpO2 were monitored throughout the procedure. MEDICATIONS: Atropine 0.6 mg IV, Versed 3 mg IV in divided doses, fentanyl 100 mcg IV in divided doses. PROCEDURE IN DETAIL: After giving conscious sedation, the fiberoptic bronchoscope was passed through the mouth. The epiglottis was normal. The vocal cords were normal, moving equally on phonation. The main trachea was normal. The jacqueline was sharp. The right main bronchus subsegment to the right upper lobe, right lower lobe within normal range. There is white yellowish secretions in the bronchial tree. The left main bronchus was normal. There was subsegment to the left upper lobe lingula, left lower lobe within normal range. No endobronchial lesion was seen. There were also whitish secretion on the left side. No endobronchial lesion was seen on both sides. Specimen washing was obtained from both sides and sent for routine culture and sensitivity, AFB and fungus and cytology. Overall, the patient tolerated the procedure very well. TRANSINT:[id number] Voice Confirmation ID: [id number] DOCUMENT ID: [id number] BENSON CHAUDHARY MD at 1349 CC: Kieran FOURNIER MICHAEL MD [id number] DICTATION DATE: 08/08/16 1144 STUDIO ENGINEER: 08/08/16 1457 DIS IN 08/13/16 [place] [id number] [place] [address]
[2016-09-25 11:16] LABS: ACID FAST CULTURE Negative (()); ACID FAST SMEAR Negative (())
== END 2016-08-13 15:32 | disposition home or self-care (01) | DRG 371 ==
LOC: D.M2 13:17
PROVIDERS: Internal Medicine Nephrology; Internal Medicine Pulmonary Disease; Student in an Organized Health Care Education/Training Program; ADMIT Internal Medicine Nephrology
PROC: 3E1M39Z Irrigation of Peritoneal Cavity using Dialysate, Percutaneous Approach (ICD-10-PCS; principal; 2016-08-06)
PROC: 0BB78ZX Excision of Left Main Bronchus, Via Natural or Artificial Opening Endoscopic, Diagnostic (ICD-10-PCS; 2016-08-08)
PROC: 0BB38ZX Excision of Right Main Bronchus, Via Natural or Artificial Opening Endoscopic, Diagnostic (ICD-10-PCS; 2016-08-08)
DX: K65.9 Peritonitis, unspecified (principal); N18.6 End stage renal disease; I12.0 Hypertensive chronic kidney disease with stage 5 chronic kidney disease or end stage renal disease; I69.954 Hemiplegia and hemiparesis following unspecified cerebrovascular disease affecting left non-dominant side; Z99.2 Dependence on renal dialysis; I95.9 Hypotension, unspecified; D63.1 Anemia in chronic kidney disease; E87.6 Hypokalemia; Z86.11 Personal history of tuberculosis; Z87.891 Personal history of nicotine dependence

== ENCOUNTER 2017-03-07 11:50 | Outpatient (CLI) | payer MEDICARE ==
[2016-08-07 10:58] VITALS: BMI 25.8
[~2017-03-07 11:50] MED LIST: FOSRENOL500 MG PO; FUROSEMIDE40 MG PO; HYDROCODON-ACE1 EAC7 PO; PRINIVIL20 MG PO; SENSIPAR30 MG PO
--- NOTE | 2017-03-07 13:08 | NUR ---
HGB 9.4 BLOOD NOT NEEDED DISCHARGED TO HOME.1309.
--- NOTE | 2017-03-07 13:10 | NUR ---
INSRUCTED TO FOLLOW UP WITH FOR STOOL GUIAC CARDS.
== END 2017-03-07 13:09 | disposition home or self-care (01) ==
LOC: D.OPS 11:50
DX: D64.9 Anemia, unspecified (principal)

== ENCOUNTER 2017-07-30 19:20 | Inpatient (IN) | payer MEDICARE, OTHER ==
--- NOTE | ~2017-07-30 | OP ---
PATIENT NAME: ROSHAN VELAZQUEZ MEDICAL RECORD: [id number] :[birth year] LOCATION:D.M2 D.2115 ADMISSION DATE:07/30/17 SURGEON: ZA MORALES MD DATE OF OPERATION: 08/07/2017 PREOPERATIVE DIAGNOSES: 1. Nonfunctioning peritoneal dialysis catheter. 2. Peritonitis. 3. End-stage renal disease. 4. Anemia of chronic renal disease. POSTOPERATIVE DIAGNOSES: 1. Nonfunctioning peritoneal dialysis catheter. 2. Peritonitis. 3. End-stage renal disease. 4. Anemia of chronic renal disease. PROCEDURE: Removal of peritoneal dialysis catheter. SURGEON: Za Morales MD REPORT OF PROCEDURE: The patient's abdomen was prepped and draped in sterile fashion. The peritoneal dialysis catheter was freed up from its underlying sheath at the subcutaneous level. Once we had freed this up, then we made a small incision in the midline overlying the deeper cuff. We used electrocautery to dissect down to this deeper cuff and we were able to free it up from its surrounding attachments and the musculature and fascia. Once the catheter was completely excised, the tip was sent off for culture. A 0 Prolene times 4 was used to close the fascial defect. We then irrigated out the wounds with normal saline and assured there was no sign of any bleeding. At this point, the subcutaneous tissues were reapproximated with interrupted 3-0 Vicryls and the skin was closed with running subcutaneous 5-0 Monocryl. COMPLICATIONS: None. CONDITION: Stable. ANESTHESIA: TIVA and local. BLOOD LOSS: Minimal. TRANSINT:[id number] Voice Confirmation ID: [id number] DOCUMENT ID: [id number] ZA MORALES MD at 1319 CC: [id number] DICTATION DATE: 08/07/17 1500 EGG GRADER: 08/07/17 1528 DIS IN 08/14/17 [place] [address]
--- NOTE | ~2017-07-30 | HEMODYNAMI ---
PATIENT:ROSHAN VELAZQUEZ MEDICAL RECORD: [id number] : 46 LOCATION:D. D.2115 ADMISSION DATE: 07/30/17 Generatedon:08/05/201712:56 Patient name: ROSHAN VELAZQUEZ Patient #: [id number] SSN: : 1950 Date of study: 08/05/2017 Page: Of Hemodynamic Procedure Report Patient Data Patient Demographics Procedure consent was obtained First Name: ROSHAN Gender: Male Last Name: CAROLINE : 1950 Middle Initial: D Age: 67 year(s) Patient #: [id number] Race: Unknown Additional ID: [id number] Contact details Address: [address] [place] [address] State: [place] City: [place] Zip code: [address] Admission Admission Data Admission Date: 07/30/2017 Admission Time: 23:39 Room #: D.2115 Procedure Procedure Types Cath Procedure Peripheral Cath Diagnostic Procedure Miscellaneous Procedure Description Procedure Date Procedure Date: 08/05/2017 Procedure Start Time: 12:40 Procedure Staff Name Function Wade Baca MD Performing Physician Du Elmore RT Monitor Shanna Lion RT Scrub Chioma Sanders RN Nurse Andres Shepherd Nurse Procedure Data Cath Procedure Fluoroscopy Diagnostic fluoroscopy Total fluoroscopy Time: 1.4 time: 1.4 min min Diagnostic fluoroscopy Total fluoroscopy dose: 62 dose: 62 mGy mGy Contrast Material Contrast Material Type Amount (ml) Isovue 300 30 Procedure Medications Medication Administration Route Dosage Fentanyl I.V. 50 mcg Fentanyl I.V. 50 mcg Heparin Flush Bag added to field 1 bags (1000units/500ml NS) Hemodynamics Rest Pre Cath Intra NCS Post Cath Vital Signs Time Heart SPO2 etCO2 NIBP (mmHg) Rhythm Pain Sedation Rate (%) (mmHg) Status Level (bpm) 12:38:57 91 99 31.5 127/81(107) NSR 0 (11) 10(A) , No pain 12:47:21 95 98 18.7 146/88(118) NSR 0 (11) 10(A) , No pain 12:51:33 95 99 1.5 141/83(111) NSR 0 (11) 10(A) , No pain 12:56:17 33 No Cuff NSR 0 (11) 10(A) , No pain Medications Time Medication Route Dose Verified Delivered Reason Notes Eff ectiveness by by 12:40:32 Fentanyl I.V. 50 Wade Campos used for mcg Keven Shepherd procedure 12:46:10 Fentanyl I.V. 50 Wade Campos used for mcg Keven Shepherd procedure 12:53:16 Heparin Flush added 1 Bag to bags (1000units/500ml field NS) Procedure Log Time Note 12:23:56 Du Elmore RT (R) (CV) sent for patient. Start room use. 12:24:03 Time tracking: Regular hours 12:24:29 Plan of Care:Hemodynamics will remain stable., Cardiac rhythm will remain stable., Comfort level will be maintained., Respiratory function will remain adequate., Patient/ family verbilizes understanding of procedure., Procedure tolerated without complication., Recovers from procedure without complications.. 12:24:34 Patient received from Common Sensing II to IR Alert and oriented. Tansferred to table in Supine position. 12:24:35 Correct patient and procedure confirmed by team. 12:24:36 Correct patient and procedure confirmed by team. 12:24:38 Signed procedure consent form obtained from patient. 12:24:39 ECG and BP/O2 sat monitors applied to patient. 12:24:40 Full Disclosure recording started 12:24:40 - 12:24:45 H&P Date Dictated: 08/05/2017 Within 30 days and on chart.. 12:24:49 Pre-procedure instructions explained to patient. 12:24:49 Pre-op teaching completed and patient verbalized understanding. 12:24:51 Family in waiting room. 12:24:53 Patient NPO since Midnight. 12:24:57 Is the patient allergic to Iodine/contrast media? No. 12:25:03 Use device set IR Diagnostic 12:25:04 Bag Decanter (2002S) opened to sterile field. 12:25:05 Sterile Angiographic Pack opened to sterile field. 12:30:51 Patient diabetic? No. 12:30:53 Is patient on blood thinner?No 12:30:54 - 12:30:55 ----Pre-sedation anethsthesia assessment.---- 12:30:58 Previous problem with sedation/anesthesia? No ? 12:30:59 Snore? Yes 12:31:06 Sleep apnea? No 12:31:07 Deviated septum? No 12:31:09 Opens mouth fully? Yes 12:31:10 Sticks out tongue? Yes 12:31:12 Airway obstruction? No ? 12:31:14 Dentures? No ? 12:31:19 Patient pain scale 0/10 no pain. 12:31:27 Sharps counted by scrub and verified by RJenniferN. 12:31:27 Alarms reviewed by RJennifer N. 12:31:36 IV patent on arrival in Rt subclavian with 0.9% NaCl at KVO. 12:31:45 Right abdomen area was prepped with chlora-prep and draped in sterile fashion 12:38:04 Physician arrived 12:38:05 --------ALL STOP TIME OUT------ 12:38:06 Final Timeout: patient, procedure, and site verified with staff and physician. All members of the team are in agreement. 12:38:11 Right abdomen site verified by team. 12:38:16 Sedation plan: IV Moderate Sedation Medication:Versed, Fentanyl 12:40:16 Procedure started. 12:40:32 Fentanyl 50 mcg I.V. was administered by Andres Shepherd; used for procedure; 12:46:10 Fentanyl 50 mcg I.V. was administered by Andres Shepherd; used for procedure; 12:46:21 Vital chart was started 12:49:13 Procedure ended.(Physican Out) 12:49:34 Fluoroscopy time 01.40 minutes. 12:49:39 Fluoroscopy dose: 62 mGy 12:49:39 Flurop Dose total: 62 12:49:44 Contrast amount:Isovue 300 30ml. 12:49:52 Sharps counted by scrub and verified by R.N. 12:49:54 Insertion/operative site no bleeding no hematoma. 12:49:56 GLIDE WIRE Super Stiff Angled 260cm ([id number]) opened to sterile field. 12:50:05 Post Abdominal area:stable 12:50:50 Post procedure instruction explained to patient.Patient verbalizes understanding. 12:50:51 Procedure and supply charges have been captured, reviewed, submitted an d are correct. 12:53:16 Heparin Flush Bag (1000units/500ml NS) 1 bags added to field was administered by ; ; 12:56:09 Report given to Med II. 12:56:12 Patient transfered to Med II with Bed. 12:56:39 Vital chart was stopped Device Usage Item Name Manufacture Quantity Catalog Hospital Part Current Minimal Lot# / Number Charge Number Stock Stock Serial# Code Bag Decanter Microtek 1 [id number] () [employer] Sterile Cardinal 1 [id number] 5 Angiographic Health Pack GLIDE WIRE Terumo 1 [id number] 5 Super Stiff Angled 260cm ([id number]) Signature Audit [place] Stage Time Signature Unsigned Intra-Procedure 08/05/2017 Du 12:56:36 PM Catarina RT (R) (CV) Signatures Monitor : Du Signature : Catarina RT Date : Time : [address] [address]
[2017-07-30 21:20] LABS: BASOPHILS 0.2 % (0-2); EOSINOPHILS 0 % (0-7); HEMATOCRIT 26.9 % (42.0-54.0); HEMOGLOBIN 8.6 g/dL (13.5-17.5); IMMATURE GRANULOCYTES 0.4 % (0-5); LYMPHOCYTES 3.3 % (15-50); MCH 28.7 pg (26.0-34.0); MCV 89.7 fL (80.0-100.0); MEAN PLATELET VOLUME 10.8 fL (7.4-10.4); NEUTROPHILS 91.1 % (40-80); RDW 14.1 % (11.5-14.5); WBC 10.7 10x3/uL (4.8-10.8)
[2017-07-30 21:26] LABS: PLATELET COUNT 243 10x3/uL (130-400)
[2017-07-30 22:05] LABS: ALBUMIN 2.3 g/dL (3.4-5.0); ANION GAP 21.3 mmol/L (8-16); BILIRUBIN - TOTAL 0.81 mg/dL (0.2-1.3); CALCIUM 8.1 mg/dL (8.5-10.1); CARBON DIOXIDE 23.5 mmol/L (21.0-32.0); CREATININE - SERUM 14.4 mg/dL (0.6-1.3); POTASSIUM - SERUM 3.8 mmol/L (3.5-5.1); PROTEIN - SERUM 6.3 g/dL (6.4-8.2)
[2017-07-30 22:21] LABS: PROTEIN - BODY FLUID 1.2 G/DL
[2017-07-30 22:55] LABS: EOS BF 3 %; NEUT - BF 88 %
[2017-07-31] VITALS (56 sets, daily range): BP systolic 87–119; BP diastolic 46–71; BMI 30.5; BMI 30.6
[2017-07-31] MEDS ORDERED: ROCALTROL0.5 MCG PO (01:08)
[2017-07-31] MEDS ORDERED: ZEGERID 20 MG C1 CAP PO (01:10)
[2017-07-31] MEDS ORDERED: NEPHRO-VITE RX1 TAB PO (01:11)
[2017-07-31] MEDS ORDERED: FERROUS SULFAT325 MG PO (01:11)
[2017-07-31] MEDS ORDERED: SENSIPAR30 MG PO (01:12)
[2017-07-31] MEDS ORDERED: ZOCOR40 MG PO (01:12)
[2017-07-31] MEDS ORDERED: FOSRENOL750 MG PO (01:12)
[2017-07-31] MEDS ORDERED: FUROSEMIDE40 MG PO (01:13)
[2017-07-31] MEDS ORDERED: PRINIVIL10 MG PO (01:13)
[2017-07-31] MEDS ORDERED: COLACE100 MG PO (01:14)
[2017-07-31 09:38] LABS: HEMATOCRIT 25.9 % (42.0-54.0); HEMOGLOBIN 8.2 g/dL (13.5-17.5); MCH 29.1 pg (26.0-34.0); MCHC 31.7 g/dL (31.0-37.0); MCV 91.8 fL (80.0-100.0); MEAN PLATELET VOLUME 10.9 fL (7.4-10.4); PLATELET COUNT 239 10x3/uL (130-400); RBC 2.82 10x6/uL (4.20-6.10); RDW 14.4 % (11.5-14.5); WBC 20.5 10x3/uL (4.8-10.8)
[2017-07-31 10:02] LABS: ANION GAP 24.3 mmol/L (8-16); CALCIUM 7.4 mg/dL (8.5-10.1); CARBON DIOXIDE 20.6 mmol/L (21.0-32.0); CREATININE - SERUM 15.5 mg/dL (0.6-1.3)
[2017-07-31 10:07] LABS: POTASSIUM - SERUM 4.9 mmol/L (3.5-5.1)
[2017-07-31 10:45] LABS: EOSINOPHILS 1 % (0-7); LYMPHOCYTES 4 % (15-50); MONOCYTES 4 % (2-11); NEUTROPHILS 74 % (40-80); PLATELET ESTIMATE NORMAL
[2017-08-01] VITALS (88 sets, daily range): BP systolic 87–134; BP diastolic 7–91
[2017-08-01 07:59] LABS: BASOPHILS 0.1 % (0-2); EOSINOPHILS 0.5 % (0-7); HEMATOCRIT 25.2 % (42.0-54.0); IMMATURE GRANULOCYTES 7.4 % (0-5); LYMPHOCYTES 2.2 % (15-50); MCH 28.5 pg (26.0-34.0); MCHC 31.7 g/dL (31.0-37.0); MEAN PLATELET VOLUME 11.1 fL (7.4-10.4); NEUTROPHILS 87.8 % (40-80); PLATELET COUNT 224 10x3/uL (130-400); RBC 2.81 10x6/uL (4.20-6.10); RDW 14.3 % (11.5-14.5); WBC 18.7 10x3/uL (4.8-10.8)
[2017-08-01 08:04] LABS: MCV 89.7 fL (80.0-100.0)
[2017-08-01 08:08] LABS: ANION GAP 21.3 mmol/L (8-16); CALCIUM 7.6 mg/dL (8.5-10.1); CREATININE - SERUM 14.1 mg/dL (0.6-1.3); POTASSIUM - SERUM 4.3 mmol/L (3.5-5.1)
[2017-08-01 19:09] LABS: MACROPHAGES BF 18 %; MESOTHELIALS BF 3 %; NEUT - BF 66 %
[2017-08-02] VITALS (24 sets, daily range): BP systolic 85–146; BP diastolic 57–84; BMI 30.6
[2017-08-02 04:07] LABS: BASOPHILS 0.1 % (0-2); EOSINOPHILS 3.8 % (0-7); HEMATOCRIT 22.2 % (42.0-54.0); IMMATURE GRANULOCYTES 0.4 % (0-5); LYMPHOCYTES 3.4 % (15-50); MCH 29.4 pg (26.0-34.0); MCHC 33.3 g/dL (31.0-37.0); MCV 88.1 fL (80.0-100.0); MEAN PLATELET VOLUME 11.2 fL (7.4-10.4); MONOCYTES 3.3 % (2-11); PLATELET COUNT 208 10x3/uL (130-400); RBC 2.52 10x6/uL (4.20-6.10); RDW 14.2 % (11.5-14.5); WBC 16.4 10x3/uL (4.8-10.8)
[2017-08-02 04:08] LABS: HEMOGLOBIN 7.4 g/dL (13.5-17.5)
[2017-08-02 04:23] LABS: ANION GAP 17.9 mmol/L (8-16); CALCIUM 7.7 mg/dL (8.5-10.1); CREATININE - SERUM 13.5 mg/dL (0.6-1.3); POTASSIUM - SERUM 3.9 mmol/L (3.5-5.1)
[2017-08-02 22:04] LABS: HEMATOCRIT 25.9 % (42.0-54.0); HEMOGLOBIN 8.5 g/dL (13.5-17.5)
[2017-08-03] VITALS (13 sets, daily range): BP systolic 118–168; BP diastolic 62–103
[2017-08-03 04:46] LABS: BASOPHILS 0.1 % (0-2); EOSINOPHILS 0.1 % (0-7); HEMATOCRIT 24.9 % (42.0-54.0); HEMOGLOBIN 8.4 g/dL (13.5-17.5); IMMATURE GRANULOCYTES 0.6 % (0-5); LYMPHOCYTES 4.3 % (15-50); MCH 29.2 pg (26.0-34.0); MCHC 33.7 g/dL (31.0-37.0); MCV 86.5 fL (80.0-100.0); MEAN PLATELET VOLUME 11.6 fL (7.4-10.4); NEUTROPHILS 92.9 % (40-80); PLATELET COUNT 202 10x3/uL (130-400); RBC 2.88 10x6/uL (4.20-6.10); WBC 16.2 10x3/uL (4.8-10.8)
[2017-08-03 04:51] LABS: ANION GAP 16.9 mmol/L (8-16); CALCIUM 7.3 mg/dL (8.5-10.1); CARBON DIOXIDE 25.4 mmol/L (21.0-32.0); CREATININE - SERUM 12.7 mg/dL (0.6-1.3); POTASSIUM - SERUM 4.3 mmol/L (3.5-5.1)
[2017-08-03 16:54] LABS: MACROPHAGES BF 4 %; MESOTHELIALS BF 3 %; NEUT - BF 81 %
[2017-08-04 00:30] VITALS: BP 136/68
[2017-08-04 04:30] VITALS: BP 183/72
[2017-08-04 08:08] VITALS: BP 123/83
[2017-08-04 08:12] LABS: BASOPHILS 0.1 % (0-2); EOSINOPHILS 1.1 % (0-7); HEMATOCRIT 26.1 % (42.0-54.0); HEMOGLOBIN 8.9 g/dL (13.5-17.5); IMMATURE GRANULOCYTES 1.8 % (0-5); LYMPHOCYTES 6.2 % (15-50); MCH 29.4 pg (26.0-34.0); MCHC 34.1 g/dL (31.0-37.0); MCV 86.1 fL (80.0-100.0); MEAN PLATELET VOLUME 11.4 fL (7.4-10.4); MONOCYTES 5.3 % (2-11); NEUTROPHILS 85.5 % (40-80); PLATELET COUNT 208 10x3/uL (130-400); RBC 3.03 10x6/uL (4.20-6.10); WBC 16.1 10x3/uL (4.8-10.8)
[2017-08-04 08:19] LABS: ANION GAP 17.3 mmol/L (8-16); CALCIUM 7.8 mg/dL (8.5-10.1); CARBON DIOXIDE 25.3 mmol/L (21.0-32.0); CREATININE - SERUM 13.6 mg/dL (0.6-1.3)
[2017-08-04 08:20] LABS: POTASSIUM - SERUM 3.6 mmol/L (3.5-5.1)
[2017-08-04 10:58] VITALS: BP 128/75
[2017-08-04 15:33] VITALS: BP 132/66
[2017-08-04 20:00] VITALS: BP 155/97
[2017-08-05] VITALS: BP 114/82
[2017-08-05 04:00] VITALS: BP 118/70
[2017-08-05 04:18] LABS: HEMATOCRIT 26.9 % (42.0-54.0); HEMOGLOBIN 9.4 g/dL (13.5-17.5); LYMPHOCYTES 5.8 % (15-50); MCH 29.9 pg (26.0-34.0); MCHC 34.9 g/dL (31.0-37.0); MCV 85.7 fL (80.0-100.0); MEAN PLATELET VOLUME 11.5 fL (7.4-10.4); NEUTROPHILS 89.9 % (40-80); PLATELET COUNT 209 10x3/uL (130-400); RBC 3.14 10x6/uL (4.20-6.10); WBC 21.8 10x3/uL (4.8-10.8)
[2017-08-05 04:38] LABS: ANION GAP 21.3 mmol/L (8-16); CALCIUM 7.7 mg/dL (8.5-10.1); CARBON DIOXIDE 24.5 mmol/L (21.0-32.0); POTASSIUM - SERUM 3.8 mmol/L (3.5-5.1)
[2017-08-05 08:13] LABS: INR 1.21 (0.85-1.17); PROTIME 14.9 SECONDS (11.6-15.0)
[2017-08-05 09:13] VITALS: BP 142/72
[2017-08-05 13:46] VITALS: BP 140/79
[2017-08-05 17:46] VITALS: BP 145/80
[2017-08-05 20:00] VITALS: BP 151/79
[2017-08-06 04:00] VITALS: BP 128/64
[2017-08-06 06:16] LABS: BASOPHILS 0.1 % (0-2); EOSINOPHILS 0.8 % (0-7); HEMATOCRIT 25.4 % (42.0-54.0); HEMOGLOBIN 8.4 g/dL (13.5-17.5); IMMATURE GRANULOCYTES 3.1 % (0-5); LYMPHOCYTES 4.2 % (15-50); MCH 28.7 pg (26.0-34.0); MCHC 33.1 g/dL (31.0-37.0); MCV 86.7 fL (80.0-100.0); MEAN PLATELET VOLUME 11.9 fL (7.4-10.4); MONOCYTES 3.5 % (2-11); NEUTROPHILS 88.3 % (40-80); PLATELET COUNT 258 10x3/uL (130-400); RBC 2.93 10x6/uL (4.20-6.10); WBC 26.2 10x3/uL (4.8-10.8)
[2017-08-06 06:40] LABS: ANION GAP 24.6 mmol/L (8-16); CARBON DIOXIDE 22.1 mmol/L (21.0-32.0); CREATININE - SERUM 15.4 mg/dL (0.6-1.3); POTASSIUM - SERUM 3.7 mmol/L (3.5-5.1)
[2017-08-06 09:10] VITALS: BP 149/80
[2017-08-06 12:16] VITALS: BP 137/78
[2017-08-06 16:45] VITALS: BP 180/58
[2017-08-06 20:00] VITALS: BP 139/68
[2017-08-07 04:00] VITALS: BP 132/66
[2017-08-07 05:31] LABS: BASOPHILS 0.1 % (0-2); EOSINOPHILS 0.9 % (0-7); HEMATOCRIT 25.9 % (42.0-54.0); HEMOGLOBIN 8.8 g/dL (13.5-17.5); IMMATURE GRANULOCYTES 1.9 % (0-5); LYMPHOCYTES 3.4 % (15-50); MCH 29.3 pg (26.0-34.0); MCV 86.3 fL (80.0-100.0); MEAN PLATELET VOLUME 11.8 fL (7.4-10.4); MONOCYTES 3.5 % (2-11); NEUTROPHILS 90.2 % (40-80); PLATELET COUNT 270 10x3/uL (130-400); RDW 14.4 % (11.5-14.5); WBC 28.7 10x3/uL (4.8-10.8)
[2017-08-07 05:53] LABS: ANION GAP 27.7 mmol/L (8-16); CALCIUM 8.2 mg/dL (8.5-10.1); CARBON DIOXIDE 19.9 mmol/L (21.0-32.0); POTASSIUM - SERUM 3.6 mmol/L (3.5-5.1)
[2017-08-07 07:44] VITALS: BP 141/63
[2017-08-07 12:05] LABS: MAGNESIUM - SERUM 2.1 mg/dL (1.8-2.4)
[2017-08-07 12:06] LABS: PHOSPHOROUS 9.4 mg/dL (2.5-4.9)
[2017-08-07 12:13] VITALS: BP 111/68
[2017-08-07 15:17] VITALS: BP 142/69
[2017-08-07 20:00] VITALS: BP 131/57
[2017-08-08 04:00] VITALS: BP 136/72
[2017-08-08 05:15] LABS: ANION GAP 29.9 mmol/L (8-16); CARBON DIOXIDE 18.2 mmol/L (21.0-32.0); CREATININE - SERUM 18.2 mg/dL (0.6-1.3); POTASSIUM - SERUM 4.1 mmol/L (3.5-5.1)
[2017-08-08 05:19] LABS: BASOPHILS 0.2 % (0-2); EOSINOPHILS 1.3 % (0-7); HEMATOCRIT 26.1 % (42.0-54.0); HEMOGLOBIN 8.6 g/dL (13.5-17.5); IMMATURE GRANULOCYTES 2.2 % (0-5); LYMPHOCYTES 4.7 % (15-50); MCH 28.8 pg (26.0-34.0); MCV 87.3 fL (80.0-100.0); MEAN PLATELET VOLUME 11.7 fL (7.4-10.4); MONOCYTES 3.9 % (2-11); NEUTROPHILS 87.7 % (40-80); PLATELET COUNT 280 10x3/uL (130-400); RBC 2.99 10x6/uL (4.20-6.10); RDW 14.7 % (11.5-14.5); WBC 25.2 10x3/uL (4.8-10.8)
[2017-08-08 07:28] VITALS: BP 136/76
[2017-08-08 15:00] VITALS: BP 114/59
[2017-08-08 20:00] VITALS: BP 116/62
[2017-08-09 00:51] VITALS: BP 118/71
[2017-08-09 04:32] VITALS: BP 120/55
[2017-08-09 05:47] LABS: BASOPHILS 0.1 % (0-2); EOSINOPHILS 1.4 % (0-7); HEMATOCRIT 25.1 % (42.0-54.0); HEMOGLOBIN 8.4 g/dL (13.5-17.5); IMMATURE GRANULOCYTES 1.4 % (0-5); LYMPHOCYTES 5.3 % (15-50); MCH 29.3 pg (26.0-34.0); MCHC 33.5 g/dL (31.0-37.0); MCV 87.5 fL (80.0-100.0); MEAN PLATELET VOLUME 10.8 fL (7.4-10.4); MONOCYTES 4.3 % (2-11); NEUTROPHILS 87.5 % (40-80); PLATELET COUNT 270 10x3/uL (130-400); RBC 2.87 10x6/uL (4.20-6.10); RDW 14.8 % (11.5-14.5); WBC 24.6 10x3/uL (4.8-10.8)
[2017-08-09 06:06] LABS: CALCIUM 8.3 mg/dL (8.5-10.1); CARBON DIOXIDE 21.9 mmol/L (21.0-32.0); CREATININE - SERUM 14.8 mg/dL (0.6-1.3); POTASSIUM - SERUM 3.9 mmol/L (3.5-5.1)
[2017-08-09 07:54] VITALS: BP 109/67
[2017-08-09 08:16] LABS: HEPATITIS C ANTIBODY <0.1 (0.0-0.9)
[2017-08-09 11:28] VITALS: BP 141/70
[2017-08-09 15:22] VITALS: BP 153/71
[2017-08-09 22:15] VITALS: BP 108/55
[2017-08-10 01:30] VITALS: BP 133/69
[2017-08-10 05:38] LABS: BASOPHILS 0.1 % (0-2); EOSINOPHILS 1.1 % (0-7); HEMATOCRIT 26.9 % (42.0-54.0); HEMOGLOBIN 8.8 g/dL (13.5-17.5); IMMATURE GRANULOCYTES 1.2 % (0-5); MCH 28.9 pg (26.0-34.0); MCHC 32.7 g/dL (31.0-37.0); MCV 88.2 fL (80.0-100.0); MEAN PLATELET VOLUME 11.3 fL (7.4-10.4); MONOCYTES 4.4 % (2-11); NEUTROPHILS 89.2 % (40-80); PLATELET COUNT 290 10x3/uL (130-400); RBC 3.05 10x6/uL (4.20-6.10); RDW 14.9 % (11.5-14.5); WBC 26.5 10x3/uL (4.8-10.8)
[2017-08-10 05:42] LABS: ANION GAP 24.8 mmol/L (8-16); CALCIUM 8.4 mg/dL (8.5-10.1); CARBON DIOXIDE 21.3 mmol/L (21.0-32.0); CREATININE - SERUM 16.4 mg/dL (0.6-1.3); POTASSIUM - SERUM 4.1 mmol/L (3.5-5.1)
[2017-08-10 06:20] VITALS: BP 136/57
[2017-08-10 08:40] VITALS: BP 130/85
[2017-08-10 12:06] VITALS: BP 159/82
[2017-08-10 16:29] VITALS: BP 159/87
[2017-08-10 20:00] VITALS: BP 156/77
[2017-08-11 04:00] VITALS: BP 156/80
[2017-08-11 07:48] VITALS: BP 168/80
[2017-08-11 14:56] VITALS: BP 153/76
[2017-08-11 15:50] LABS: APPEARANCE CLEAR (CLEAR); BILIRUBIN NEGATIVE (NEGATIVE); COLOR YELLOW (YELLOW); GLUCOSE NEGATIVE (NEGATIVE); KETONE NEGATIVE (NEGATIVE); NITRITE NEGATIVE (NEGATIVE); PROTEIN TRACE mg/dL (NEGATIVE); RED CELLS - URINE 25-50 /hpf (0-5); SPECIFIC GRAVITY 1.015 (1.005-1.020); UROBILINOGEN NORMAL (NORMAL)
[2017-08-11 15:51] LABS: BACTERIA FEW /hpf (NONE SEEN)
[2017-08-11 17:30] VITALS: BP 122/67
[2017-08-11 21:15] VITALS: BP 122/67
[2017-08-12 04:00] VITALS: BP 122/67
[2017-08-12 08:06] VITALS: BP 122/67
[2017-08-12 11:14] VITALS: BP 136/72
[2017-08-12 14:56] VITALS: BP 128/68
[2017-08-12 20:56] VITALS: BP 142/72
[2017-08-13 01:20] VITALS: BP 118/61
[2017-08-13 06:40] VITALS: BP 119/64
[2017-08-13 08:04] VITALS: BP 112/59
[2017-08-13 13:34] LABS: HEMATOCRIT 24.9 % (42.0-54.0); HEMOGLOBIN 8.2 g/dL (13.5-17.5); MCH 28.9 pg (26.0-34.0); MCHC 32.9 g/dL (31.0-37.0); MCV 87.7 fL (80.0-100.0); MEAN PLATELET VOLUME 10.8 fL (7.4-10.4); PLATELET COUNT 297 10x3/uL (130-400); RBC 2.84 10x6/uL (4.20-6.10); RDW 15.4 % (11.5-14.5); WBC 21.2 10x3/uL (4.8-10.8)
[2017-08-13 14:04] LABS: BASOPHILS 1 % (0-2); EOSINOPHILS 1 % (0-7); LYMPHOCYTES 7 % (15-50); MONOCYTES 5 % (2-11); NEUTROPHILS 84 % (40-80)
[2017-08-13 14:05] LABS: PLATELET ESTIMATE NORMAL
[2017-08-13 14:39] VITALS: BP 118/66
[2017-08-13 20:39] VITALS: BP 128/66
[2017-08-14] VITALS: BP 104/55
[2017-08-14 04:53] VITALS: BP 110/64
[2017-08-14 06:16] LABS: BASOPHILS 0.2 % (0-2); EOSINOPHILS 1.4 % (0-7); HEMATOCRIT 26.2 % (42.0-54.0); HEMOGLOBIN 8.3 g/dL (13.5-17.5); IMMATURE GRANULOCYTES 0.8 % (0-5); LYMPHOCYTES 4.5 % (15-50); MCH 28.7 pg (26.0-34.0); MCHC 31.7 g/dL (31.0-37.0); MEAN PLATELET VOLUME 11.1 fL (7.4-10.4); MONOCYTES 8.1 % (2-11); PLATELET COUNT 303 10x3/uL (130-400); RBC 2.89 10x6/uL (4.20-6.10); RDW 15.7 % (11.5-14.5); WBC 18.4 10x3/uL (4.8-10.8)
[2017-08-14 06:17] LABS: MCV 90.7 fL (80.0-100.0)
[2017-08-14 06:41] LABS: CALCIUM 8.4 mg/dL (8.5-10.1); CARBON DIOXIDE 25.3 mmol/L (21.0-32.0); CREATININE - SERUM 11.8 mg/dL (0.6-1.3); POTASSIUM - SERUM 4.3 mmol/L (3.5-5.1)
[2017-08-14 08:09] VITALS: BP 121/64
[2017-08-14 11:19] VITALS: BP 104/55
[2017-08-14 15:22] VITALS: BP 120/63
== END 2017-08-14 17:48 | disposition home or self-care (01) | DRG 981 ==
LOC: D.ER 19:20 → D.M2 23:39 → D.SDCHOLD 23:39 → D.ICU 23:39 → D.M2 08-03 09:56
PROVIDERS: Emergency Medicine; Internal Medicine; Internal Medicine Nephrology; Radiology Diagnostic Radiology; Student in an Organized Health Care Education/Training Program
PROC: 05H533Z Insertion of Infusion Device into Right Subclavian Vein, Percutaneous Approach (ICD-10-PCS; principal; 2017-08-02)
PROC: 3C1ZX8Z Irrigation of Indwelling Device using Irrigating Substance, External Approach (ICD-10-PCS; 2017-08-05)
PROC: 0WPG03Z Removal of Infusion Device from Peritoneal Cavity, Open Approach (ICD-10-PCS; 2017-08-07)
DX: T85.71XA Infection and inflammatory reaction due to peritoneal dialysis catheter, initial encounter (principal); K65.9 Peritonitis, unspecified; N18.6 End stage renal disease; A41.9 Sepsis, unspecified organism; R65.21 Severe sepsis with septic shock; I12.0 Hypertensive chronic kidney disease with stage 5 chronic kidney disease or end stage renal disease; I95.9 Hypotension, unspecified; Z86.73 Personal history of transient ischemic attack (TIA), and cerebral infarction without residual deficits; D63.1 Anemia in chronic kidney disease